=== PATIENT | male | born 1965 | race Caucasian/White ===

== ENCOUNTER 2017-12-10 14:24 | Emergency (ER) | payer OTHER ==
[2017-12-10 14:40] VITALS: BMI 28.2
[2017-12-10 14:43] VITALS: BP 147/88; PULSE 82; RESP 18; TEMP 98.8; O2SAT 98
--- NOTE | 2017-12-10 15:05 | ED PDOC ---
Arrival/HPI - General Historian: Patient <Gamal Lara - Last Filed: 12/10/17 15:02> <Danelle Obrien - Last Filed: 12/10/17 15:48> - General Chief Complaint: Chest Pain Time Seen by Provider: 12/10/17 14:47 - History of Present Illness Narrative History of Present Illness (Text): Patient is a 52 year old male with a past medical history of hypertension, hyperlipidemia, diabetes, and tobacco abuse who presents to the ED for evaluation and treatment of chest pain. Patient states he experienced the chest guy after eating lunch. States the pain originated and remained localized to the epigastric region. Characterized as being a burning sensation in nature. Associated with diaphoresis. Denies associated SOB, dizziness, nausea/vomiting. Further denies fever, chills, abdominal pain, diarrhea, constipation, and urinary symptoms. 12/10/17 15:02 (Gamal Lraa) Past Medical History - Provider Review Nursing Documentation Reviewed: Yes - Travel History Have you recently traveled outside [place] w/in the past 3 mons?: No - Infectious Disease Hx of Infectious Diseases: None - Tetanus Immunization Tetanus Immunization: Unknown - Past Medical History Past Medical History: No Previous - Cardiac Hx Cardiac Disorders: No Hx Hypertension: Yes - Pulmonary Hx Tuberculosis: No - Neurological HX Cerebrovascular Accident: No Hx Seizures: No - Endocrine/Metabolic Hx Diabetes Mellitus Type 2: Yes - Hematological/Oncological Hx Cancer: No - Genitourinary/Gynecological Hx Sexually Transmitted Diseases: No - Psychiatric Hx Psychophysiologic Disorder: No Hx Substance Use: No - Past Surgical History Past Surgical History: No Previous - Suicidal Assessment Feels Threatened In Home Enviroment: No <Gamal Lara - Last Filed: 12/10/17 15:02> Family/Social History - Physician Review Nursing Documentation Reviewed: Yes Family/Social History: Unknown Family HX Smoking Status: Heavy Smoker > 10 Cigarettes Daily Hx Alcohol Use: Yes Hx Substance Use: No Hx Substance Use Treatment: No <Gamal Lara - Last Filed: 12/10/17 15:02> Allergies/Home Meds <Gamal Lara - Last Filed: 12/10/17 15:02> <Danelle Obrien - Last Filed: 12/10/17 15:48> Allergies/Adverse Reactions: Allergies No Known Allergies Allergy (Verified 12/01/14 10:02) Home Medications: Home Meds Medication Instructions Recorded Confirmed No Known Home Med [No Known Home 12/01/14 12/01/14 Med] Review of Systems - Physician Review All systems were reviewed & negative as marked: Yes - Review of Systems Constitutional: Normal Eyes: Normal ENT: Normal Respiratory: Normal Cardiovascular: Chest Pain Gastrointestinal: Abdominal Pain Genitourinary Male: Normal Musculoskeletal: Normal Skin: Normal Neurological: Normal Endocrine: Diaphoresis Hemo/Lymphatic: Normal Psychiatric: Normal <Gamal Lara - Last Filed: 12/10/17 15:02> Physical Exam Temperature: Afebrile Blood Pressure: Normal Pulse: Regular Respiratory Rate: Normal Appearance: Positive for: Well-Appearing, Non-Toxic, Comfortable Pain Distress: None Mental Status: Positive for: Alert and Oriented X 3 - Systems Exam Head: Present: Atraumatic, Normocephalic Pupils: Present: PERRL Extroacular Muscles: Present: EOMI Conjunctiva: Present: Normal Mouth: Present: Moist Mucous Membranes Respiratory/Chest: Present: Clear to Auscultation, Good Air Exchange. No: Respiratory Distress, Accessory Muscle Use Cardiovascular: Present: Regular Rate and Rhythm, Normal S1, S2 Abdomen: Present: Normal Bowel Sounds. No: Tenderness, Peritoneal Signs, Rebound, Guarding Upper Extremity: Present: Normal Inspection Lower Extremity: Present: Normal Inspection Neurological: Present: GCS=15, CN II-XII Intact, Speech Normal, Motor Func Grossly Intact, Normal Sensory Function Skin: Present: Warm, Dry Psychiatric: Present: Alert, Oriented x 3, Normal Insight, Normal Concentration <Gamal Lara - Last Filed: 12/10/17 15:02> Vital Signs Temp Pulse Resp BP Pulse Ox 12/10/17 15:03 18 12/10/17 14:41 98.8 F 82 18 147/88 98 Medical Decision Making <Gamal Lara - Last Filed: 12/10/17 15:02> <Danelle Obrien - Last Filed: 12/10/17 15:48> ED Course and Treatment: Patient is a 52 year old male with a past medical history of hypertension, hyperlipidemia, diabetes, and tobacco abuse who presents to the ED for evaluation and treatment of chest pain. Chest pain Hx of HTN Hx of HPL Hx of DM Tobacco Abuse 12/10/17 15:07: - EKG revealed NSR no acute ST- T wave changes - Patient has decided to leave against medical advice prior to lab draw, risks of leaving AMA thoroughly explained to patient including an increase in his mortality, morbidity, , paralysis, and stroke - Patient expresses intent to see primary care physician today 12/10/17 15:23 (Gamal Lara) 12/10/17 15:45 Patient seen by resident and then evaluated by me. He presented with epigastric pain and diaphoresis. EKG shows NSR at 81bpm with left atrial enlargement and non-specific ST changes. Patient has multiple cardiac risk factors. It was recommended to him that we get blood work and cxray and observation for cardiac evaluation. He is now refusing to stay in the ED for labs, cxray or further evaluation. He continues to attribute the pain to hot sauce he ate at lunch. Patient is AAox3 and understands the risk of signing out AMA, including but not limited to: cardiac failure and . (Danelle Obrien) Disposition/Present on Arrival - Present on Arrival Any Indicators Present on Arrival: No History of DVT/PE: No History of Uncontrolled Diabetes: No Urinary Catheter: No History of Decub. Ulcer: No History Surgical Site Infection Following: None - Disposition Have Diagnosis and Disposition been Completed?: Yes Disposition Time: 15:10 <Gamal Lara - Last Filed: 12/10/17 15:02> - Disposition Have Diagnosis and Disposition been Completed?: Yes <Danelle Obrien - Last Filed: 12/10/17 15:48> - Disposition Diagnosis: Chest pain Disposition: AGAINST MEDICAL ADVICE Condition: UNKNOWN Discharge Instructions (ExitCare): Chest Pain (ED) Additional Instructions: You have left against medical advice Forms: [facility] (Romanian), WORK NOTE
== END 2017-12-10 15:15 | disposition left against medical advice (07) ==
LOC: ED 14:24
DX: R07.9 Chest pain, unspecified (principal); E11.9 Type 2 diabetes mellitus without complications; E78.5 Hyperlipidemia, unspecified; I10 Essential (primary) hypertension; F17.210 Nicotine dependence, cigarettes, uncomplicated